=== PATIENT | female | born 1985 | race Caucasian/White ===

== ENCOUNTER 2017-12-05 18:37 | Emergency (ER) | payer MEDICAID ==
[~2017-12-05] VITALS: Ht 167.6 cm; Wt 60.0 kg
[2017-12-05] MEDS ORDERED: HYDROcodone/acetaminophen 10/325mg tab PO ONE (20:10)
[2017-12-05] MEDS ORDERED: ACET1TAB12 PO (20:14)
[2017-12-05 20:44] VITALS: BP 113/77
== END 2017-12-05 20:48 | disposition home or self-care (01) ==
LOC: ER 18:38
DX: M79.671 Pain in right foot (principal); F17.200 Nicotine dependence, unspecified, uncomplicated; Z79.899 Other long term (current) drug therapy
CPT/HCPCS: 73630; 99284; A6449; L3260

== ENCOUNTER 2025-04-22 22:10 | Inpatient (IN) | payer MEDICAID ==
[~2025-04-22] VITALS: Ht 165.1 cm; Wt 61.0 kg
[~2025-04-22 22:10] MED LIST: ACET1TAB12 PO
[2025-04-22 23:02] LABS: MEAN PLATELET VOLUME 7.6 FL (7.4-10.4); RED CELL DISTRIBUTION WIDTH 14.1 % (11.5-14.5)
[2025-04-22 23:08] LABS: CREATININE 0.66 MG/DL (0.40-0.90); TOTAL CARBON DIOXIDE 26.0 MMOL/L (24-32); eCRCL 108 ML/MIN; eGFR > 90 ML/MIN
[2025-04-23] VITALS (22 sets, daily range): BP systolic 101–130; BP diastolic 55–86; PULSE 75–102; RESP 15–22; TEMP 98.1–99.3; O2SAT 98–100
[2025-04-23 00:57] LABS: URINE HCG NEGATIVE (NEG)
[2025-04-23 01:06] LABS: LEUKOCYTE ESTERASE ,URINE MODERATE (Neg); NITRITES, URINE POSITIVE (Neg); OCCULT BLOOD,URINE LARGE (Neg)
[2025-04-23 01:08] LABS: UA COLLECTION TYPE CLN CATCH MIDSTREAM
[2025-04-23 01:10] LABS: MUCUS STRANDS FEW /LPF (Neg); SQUAMOUS EPITHELIAL CELL,UR FEW /LPF (FEW)
--- NOTE | 2025-04-23 01:30 | Physician Documentation ---
History of Present Illness ~ Chief Complaint: Flank Pain Stated Complaint: FLANK PAIN Time Seen by MD: 01:29 Primary Medical Doctor: NONE Mode of Arrival: POV, Ambulatory HPI Patient presents to the emergency room for evaluation of right flank pain. She states it has been hurting a bit the last few days however suddenly got worse today. No history of kidney stones. Positive history of pyelonephritis. No fevers. She is declining pain medicine at this time Medication Reconciliation Allergies: Coded Allergies: No Known Allergies (Unverified , 04/22/25) Miscellaneous Medications Methadone Hcl (Methadone Liquid), 80 MG PO, (Reported) Discontinued Medications Acetaminophen with Codeine (Tylenol with Codeine #3 Tablet), 1 TAB PO Q6H PRN Discontinued Reason: patient no longer taking Glucagon (Gvoke Hypopen), 1 APPLIC IM ONCE Discontinued Reason: patient no longer taking Past Medical History Past Medical History: No Pertinent History Past Surgical History: noncontributory Lives In: Home Review of Systems ROS All review of systems negative except as per HPI Physical Exam Vital Signs: Temperature: 96.6, Source: Temporal, Heart Rate: 93, Respiratory Rate: 16, BP: 126/72, Pulse Oximetry: 98, Weight: 61.000 Oxygen Flow Rate: 0 General Appearance General: Patient is awake, alert, oriented x4 in no acute distress and well appearing.~ Head: Normocephalic and atraumatic. Eyes: Conjunctival normal. EOMI. PERRL. ENT: Mucous membranes moist. Neck: Supple, trachea is midline. Chest: Clear to auscultation bilaterally without rales, rhonchi, or wheezes. There is no accessory muscle use or retractions. Cardiac: RRR without murmurs, gallops, or rubs. Abd: Soft, nondistended, nontender, with normoactive bowel sounds. No guarding, rebound, or rigidity. Back: Mild right-sided CVA tenderness Progress Results/Orders Results/Orders Orders - QUOC REED MD Cult Urine + [place] [facility] (04/23/25 01:11) Ct Abdomen Pelvis (04/23/25 01:46) Page Hospitalist (04/23/25 03:21) Fill Out Med Reconciliation (04/23/25 03:21) Completed Orders - QUOC REED MD Hcg, Ur Ql (04/22/25 22:30) Cbc/Diff (04/22/25 22:30) BMP (04/22/25 22:30) Lipase (04/22/25 22:30) CMP (04/22/25 22:30) Ua W/Microscopic, Cult If Ind (04/23/25 00:25) Ct Abdomen Pelvis (04/23/25 01:46) Normal Saline 1000ml (0.9% Sodium Chlori (04/23/25 01:50) Ceftriaxone Im Kit W/Lidocaine (Rocephin (04/23/25 02:55) Ceftriaxone/X4v-Dbmdqdya 1gm (Rocephin 1 (04/23/25 03:05) Normal Saline 1000ml (0.9% Sodium Chlori (04/23/25 03:45) Vital Signs 04/22/25 04/23/25 04/23/25:25 00:19 00:42 Temp 96.6 Pulse 93 93 Resp 15 16 16 B/P (MAP) 142/79 126/72 (90) Pulse Ox 97 98 O2 Flow Rate 0 Laboratory Tests Test 04/22/25 22:44 04/23/25 00:25 White Blood Count 9.1 Red Blood Count 4.12 L Hemoglobin 11.9 L Hematocrit 35.4 Mean Corpuscular Volume 86.0 Mean Corpuscular Hemoglobin 28.8 Mean Corpuscular Hemoglobin Concent 33.5 Red Cell Distribution Width 14.1 Platelet Count 246 Mean Platelet Volume 7.6 Neutrophils (%) (Auto) 79.5 H Lymphocytes (%) (Auto) 14.8 L Monocytes (%) (Auto) 4.7 Eosinophils (%) (Auto) 0.6 Basophils (%) (Auto) 0.4 Neutrophils # (Auto) 7.2 Lymphocytes # (Auto) 1.3 Monocytes # (Auto) 0.4 Eosinophils # (Auto) 0.1 Basophils # (Auto) 0.0 CBC Comment Sodium Level 142 Potassium Level 4.1 Chloride Level 107 Carbon Dioxide Level 26.0 Anion Gap 9 Blood Urea Nitrogen 23 H Creatinine 0.66 Estimated GFR/1.73 m2 > 90 BUN/Creatinine Ratio 34.8 H Glucose Level 95 Calcium Level 8.4 L Total Bilirubin 0.3 Aspartate Amino Transf (AST/SGOT) 20 Alanine Aminotransferase (ALT/SGPT) 25 Alkaline Phosphatase 72 Total Protein 6.9 Albumin 3.8 Globulin 3.1 Albumin/Globulin Ratio 1.2 Lipase 11 L Procalcitonin < 0.05 Chemistry Comments Urine Specimen Description Cln catch midstream Urine Color Yellow Urine Clarity Cloudy Urine pH 6.0 Urine Specific [place] 1.025 Urine Protein 100 H Urine Glucose (UA) Negative Urine Ketones Negative Urine Occult Blood Large H Urine Nitrite Positive H Urine Bilirubin Negative Urine Urobilinogen 0.2 Urine Leukocyte Esterase Moderate H Urine RBC 50-100 Urine WBC 50-100 H Urine Squamous Epithelial Cells Few Urine Bacteria 4+ Urine Mucus Few Urine Culture Indicated Indicated Volume Urine Centrifuged 10 ml Urine HCG, Qualitative Negative Urine Comment Microbiology Date/Time Source Procedure Growth Status 04/23/25 01:11 Urine Clean Catch Midstream Urine Culture - Preliminary Culture received. Resulted Medical Decision Making Additional information obtaine: N/A Findings Patient presented to the emergency room for evaluation of right-sided flank pain. Differentials include but are not limited to musculoskeletal pain, pyelonephritis, kidney stone, aortic pathology therefore emergent labs ordered. Urinalysis was positive for both red blood cells that has well as white blood cells and therefore we are concerned with infected kidney stone therefore after discussing the risks and benefits CT scan was performed which showed large kidney stone. In the light that patient has a large kidney stone with a urinary tract infection IV antibiotics initiated and we will be consulting with Urology. Vital signs are stable and she is not septic at this time. Diff Dx GI Bleed:Consideration: Include: AE fistula, Angiodysplasia, Bleeding diathesis, Blood loss anemia, Carcinoma, Diverticulosis, Diverticulitis, Esophageal varicies, Esophagitis, Gastritis, Gastroenteritis, Inflammatory BD, Yareli-Nelson syndrome, Meckel's diverticulum, PUD, Other Diff Dx Pain:Considerations: Include: AAA, -Complete, - Incomplete, -Inevitable, -Missed, -Threatened, Abruptio placentae, Angina/MT, Aortic dissection, Appendicitis, Bowel obstruction, Cholangitis, Cholecystitis, Cholelithasis, Constipation, Diverticular disease, Dysmenorrhea, Ectopic , Esophageal rupture, Esophagitis, Gastritis/PUD, Gastroenteritis, GI hemorrhage, Hernia, Hepatitis, Inflammatory BD, Ischemic bowel, Mass, Ovarian cyst/torsion, Pancreatitis, PID, Porphyria, Trauma, int raabdominal, Urinary obstruction, Urinary tract infection, Urolithiasis, Other Diff Dx N/V/D:Considerations: Include: Appendicitis, Bowel obstruction, Dehydration, DKA, Diarrhea - bacterial, Diarrhea - parasitic, Diarrhea - viral, Diverticulitis, Diverticulosis, Drug toxicity, Electrolyte imbalance, Food poisoning, Gastroenteritis, GE reflux, GI bleed, Hepatitis, Hernia, Hypovolemia, Hypotension, Inflammatory BD, Impaction, Malnutrition, Pancreatitis, , PUD, Renal failure, Urolithiasis, Urinary obstruction, UTI, Other Diff Dx Rectal:Considerations: Include: Fissure, Fistula, Foreign body, Impaction, Perirectal abscess, Rectal prolapse, Subcutaneous abscess, Thrombosed hemorrhoid, Ulcer, UTI, Other Departure Admitted to Inpatient Unit: yes, to hospitalist Impression: Primary Impression: Acute urinary tract infection Additional Impression: Kidney stone Condition: Guarded Referrals: NO PRIMARY CARE PROVIDER (PCP) Signature Scribe Signature: No scribe Attestation: The note accurately reflects work and decisions made by me.Quoc Reed MD 04/23/25 03:24 QUOC REED MD Apr 23, 2025 01:30
[2025-04-23] MEDS ORDERED: CefTRIAXone/D5W-Rocephin 1gm 50 ML IV ONE (01:50)
[2025-04-23] MEDS ORDERED: normal saline 1000ml 1,000 ML IV ONE (01:50)
[2025-04-23] MEDS ORDERED: GLUC0.5A IM (01:53)
[2025-04-23] MEDS ORDERED: CefTRIAXone 1000mg IM Kit (w/lidocaine diluent) IM ONE (02:55)
--- NOTE | 2025-04-23 03:00 | RADIOLOGY REPORT ---
Exam: CT CT ABDOMEN PELVIS History: flank pain Comparison Study: None TECHNIQUE: Multidetector CT of the abdomen and pelvis was performed from lung bases to pubic symphysis. Imaging was performed without IV contrast. Axial, coronal and sagittal multiplanar reformats were obtained from the axial data set by the technologist. Radiation optimization: All CT scans at this facility use at least one of these dose optimization techniques: automated exposure control mA and/or kV adjustment per patient size (includes targeted exams where dose is matched to clinical indication) or iterative reconstruction. Radiation Dose Information: CT Dose: CTDI volume is 14.4 mGy. Dose-length product is 765 mGy*cm FINDINGS: Evaluation of solid organs is limited due to lack of intravenous contrast use. Imaged portions of the lung bases demonstrate 0.5 cm nodule in the left lower lobe. Liver, gallbladder, spleen, and pancreas appear unremarkable. There is right hydronephrosis and proximal hydroureter secondary to obstructing 0.9 cm calculus in the proximal to mid right ureter. The left kidney appears unremarkable. No additional nephrolithiasis identified. No evidence of bowel obstruction. Large amount of intracolonic stool. Appendix appears normal. There is an intrauterine contraceptive device within the uterus which is anteverted. No suspicious osseous lesion. IMPRESSION: 1. Obstructing 0.9 cm calculus in the proximal to mid right ureter resulting in moderate right hydronephrosis and hydroureter. 2. Large amount of stool throughout the colon. 3. Left lower lobe pulmonary nodule measuring 0.5 cm. Follow-up recommendations are based upon the 2017 Fleischner Chest Society which are based upon the nodule size and patient risk factor for cancer. For a nodule < 6 mm in size, follow-up is based upon the patient risk factor:. A) Low-Risk Patient: No routine follow up. B) High-Risk Patient: Optional CT at 12 months.
[2025-04-23] MEDS: CefTRIAXone/D5W-Rocephin 1gm 50 ML IV ONE (03:41)
[2025-04-23] MEDS ORDERED: METH10SO PO (03:44)
[2025-04-23] MEDS: normal saline 1000ml 1,000 ML IV ONE (03:45)
[2025-04-23] MEDS ORDERED: magnesium sulf-water 4G/100mL 100 ML IV PRN (03:50)
[2025-04-23] MEDS ORDERED: ondansetron/PF 4mg/2ml inj IV PRN ×2 (03:50→14:55)
[2025-04-23] MEDS ORDERED: magnesium sulf-water 2g/50mL 50 ML IV PRN (03:50)
[2025-04-23] MEDS ORDERED: ondansetron 4mg rapidly disintigrating tab PO PRN (03:50)
[2025-04-23] MEDS ORDERED: mag hydrox/Alum hydrox/simeth 30ml oral suspension PO PRN (03:50)
[2025-04-23] MEDS ORDERED: magnesium hydroxide 30ml (MOM) UD suspension PO PRN (03:50)
[2025-04-23] MEDS ORDERED: potassium Cl 20 mEq SR tablet PO PRN ×2 (03:50)
[2025-04-23] MEDS ORDERED: magnesium Cl slow-release 64mg tablet PO PRN (03:50)
[2025-04-23] MEDS ORDERED: potassium Cl 40MEQ/1/2NS 520ml 520 ML IV PRN (03:50)
--- NOTE | 2025-04-23 04:32 | ELECTROCARDIOGRAPH REPORT ---
[facility] Test Date: 2025-04-23 Test Time: 04:30:13 Pat Name: CRIS KEARNEY Department: EMERGENCY ROOM Room: [place] [address] Gender: F Back Line Cook: RHINA : 1985 Requested By: POLLY JERRY Order Number: [id number] Reading MD: Dr. ROSALINO Titus Measurements Intervals [place] Rate: 89 P: 56 SC: 149 QRS: 79 QRSD: 93 T: 66 QT: 396 QTc: 482 Interpretive Statements Sinus rhythm Nonspecific T abnormalities, lateral leads Electronically Signed On 04-24-2025 18:03:[address] ROSALINO Titus Please click the below link to view image of tracing.
[2025-04-23] MEDS: normal saline 1000ml 1,000 ML IV SCH (04:34)
--- NOTE | 2025-04-23 04:50 | RADIOLOGY REPORT ---
CHEST RADIOGRAPH Indication: suspected Pneumonia, cough and fever. Technique: Single frontal view of the chest was obtained COMPARISON: None FINDINGS: Lungs and pleural spaces are clear. Cardiac silhouette and jhon are within normal limits. Bones and soft tissues demonstrate no significant abnormality. IMPRESSION: No acute disease.
--- NOTE | 2025-04-23 05:18 | HISTORY AND PHYSICAL-Residence ---
History & Physical Providers to CC Resident Creating Document: NAGA JERRY, RES ~ History of Present Illness Primary Medical Doctor: NONE Reason for Admit\Complaint: Acute pyelonephritis History of Present Illness This is a 39 year-old female who presented to the Emergency Department with severe right-sided flank pain that began yesterday. She rates the pain as 10/10, describing it as excruciating and radiating to the groin. The pain has not been relieved by drpe-uus-styumpy medications and is associated with nausea, foul- smelling cloudy urine, and diaphoresis. The patient was recently admitted during the month of January for similar symptoms, for which she was evaluated in the Emergency Department and discharged shortly after receiving antibiotics. She denies hematuria, dysuria, fever, chills, vomiting, constipation, diarrhea, chest pain, shortness of breath, headache, dizziness, or recent trauma. 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 Denies any recent travel She smokes vape every day, denies alcohol use, denies any drug or methamphetamine use Lives In: Home ROS Constitutional: Reports: no symptoms reported Eyes: Reports: no symptoms reported ENT: Reports: no symptoms reported Respiratory: Reports: no symptoms reported Cardiovascular: Reports: diaphoresis Gastrointestinal: Reports: nausea Genitourinary: Reports: flank pain, other (Patient reports foul-smelling cloudy urine which is dark yellow in color) Integumentary: Reports: no symptoms reported Allergic/Immunologic: Reports: no symptoms reported Hematologic/Lymphatic: Reports: no symptoms reported Endocrine: Reports: no symptoms reported Psychiatric: Reports: no symptoms reported Exam Vitals: Vital Signs Date Time Temp Pulse Resp B/P (MAP) Pulse Ox O2 Delivery O2 Flow Rate FiO2 04/23/25 04:34 94 16 114/63 (80) 100 04/23/25 00:42 0 04/22/25 22:25 96.6 General: Awake , alert, and oriented x4 HEENT: Atraumatic, normocephalic, EOMI, anicteric sclera ; pink conjunctiva Neck: Trachea midline. Supple, full range of motion, no JVD Cardiac: Regular rhythm, regular rate with no murmurs all over the precordium. Respiratory: Equal breath sounds bilaterally, no tachypnea, no wheezing ,rub or rales, Chest wall is symmetric and without deformity. Gastrointestinal: Abdomen symmetric, non-distended, soft, non-tender, normal bowel sounds x4 quadrant, normoactive, no hepatosplenomegaly Genitourinary: Right flank pain radiating to the groin is tender on palpation Neurological: Mental status exam: alert and consciousness, orientation, memory, speech - Cranial nerve test: Cranial nerves 2-12 intact - Motor system: Normal Nutrition, normal tone, Power 5/5, no involuntary movements - Sensory system: Intact - Reflex testing: Biceps, triceps and knee reflexes 2+ - Cerebellar: Normal Skin: Warm and dry Extremities : No Edema, peripheral pulses felt, No deformities Psychiatric:Appropriate mood and affect,No hallucinations or suicidal ideation Diagnostic Data Last Recorded Lab Results: 04/22/25224304/22/252243 Advance Care Planning Advanced Care plannin - 30 Minutes Additional Plan 39 years old female who presented to ED with right flank pain he is currently evaluated for acute pyelonephritis Right-sided acute pyelonephritis secondary to obstructing ureteral calculi Right hydronephrosis and hydroureter 2/2 obstructing renal calculi Complicated UTI Vitals are stable BUN elevated, creatinine normal, BUN/creatinine is 34.8 Urinalysis: +4 bacteria, +nitrite, + WBC Procalcitonin normal In ED-given 1 dose of ceftriaxone and IV normal saline 1000 mL bolus Chest d-ton-wychrx CT abdomen and pelvis shows-Obstructing 0.9 cm calculus in the proximal to mid right ureter resulting in moderate right hydronephrosis and hydroureter. Large amount of stool throughout the colon. Started IV ceftriaxone 1 g daily, IV normal saline 100 cc/hour Follow up with urine culture, ESR, CRP, lactic acid Follow up with daily labs, urology consult in a.m. Chronic opioid use Patient takes methadone at home, continue home med after med rec Advance care: I spent a total of 16 minutes reviewing various resuscitative measures/ACP with patient. The patient decided to be full code Code Status: Full DVT prophylaxis: Heparin subQ Analgesia/Sedation: Morphine Line/tube: Peripheral Nutrition: NPO PT: Ordered Prognosis: Guarded Disposition: Patient will be monitored in surgical floor, currently on maintenance fluids and antibiotic, nephrology consult in a.m. Naga Jerry PGY1-Internal Medicine Resident Addendum I personally reviewed the chart, labs and imaging and reviewed the patient with the team. I agree with the assessment and plan as documented by the resident. Patient was seen through remote audio-visual assessment through HIPAA compliance setup. Date of Service: Apr 23, 2025 Billing Provider: YENY THOMAS MD, SATISH, RES Apr 23, 2025 05:18 YENY THOMAS MD Apr 23, 2025 06:19
[2025-04-23] MEDS ORDERED: morphine 4 MG/ML inj SYRINge IV PRN ×2 (07:13→14:55)
[2025-04-23] MEDS: K and/or MAG REPLACEMENT MC SCH (08:00)
[2025-04-23] MEDS ORDERED: docusate sod 100mg capsule PO SCH (08:00)
[2025-04-23] MEDS: heparin, porcine 5000 units/ml vial SQ SCH (08:00)
[2025-04-23] MEDS: docusate sodium 100mg/10ml UD cup PO SCH (08:00)
[2025-04-23] MEDS: normal saline 500ml IV soln 500 ML IV ONE (08:24)
[2025-04-23 10:44] LABS: PRE OP HEMATOCRIT 33.8 % (35.0-45.0); PRE OP HEMOGLOBIN 11.4 g/dL (12.0-16.0)
[2025-04-23 10:45] LABS: MEAN PLATELET VOLUME 7.4 FL (7.4-10.4); PRE OP PLATELET COUNT 177 X10'3 (140-440); PRE OP WHITE BLOOD COUNT 11.6 10'3 (4.8-10.8); RED CELL DISTRIBUTION WIDTH 14.0 % (11.5-14.5)
[2025-04-23 10:45] LABS: URINE AMPHETAMINE SCREEN POSITIVE (Neg); URINE BARBITUATE SCREEN NEGATIVE (Neg); URINE BENZODIAZEPINES SCREEN NEGATIVE (Neg); URINE CANNABINOID SCREEN NEGATIVE (Neg); URINE COCAINE SCREEN NEGATIVE (Neg); URINE METHADONE SCREEN POSITIVE (Neg); URINE OPIATE SCREEN NEGATIVE (Neg); URINE PHENCYCLIDINE SCREEN NEGATIVE (Neg)
[2025-04-23 10:57] LABS: CREATININE 0.49 MG/DL (0.40-0.90); PRE OP ANION GAP 7 (8-16); PRE OP GLUCOSE 89 MG/DL (70-104); PRE OP POTASSIUM 3.8 MMOL/L (3.4-5.1); PRE OP SODIUM 139 MMOL/L (135-145); TOTAL CARBON DIOXIDE 23.1 MMOL/L (24-32); eCRCL 146 ML/MIN; eGFR > 90 ML/MIN
[2025-04-23] MEDS ORDERED: iohexol 300 MG/1 ML 50ml polymer ONE (13:16)
[2025-04-23] MEDS: morphine 4 MG/ML inj SYRINge IV PRN (13:39)
[2025-04-23] MEDS ORDERED: labetalol 20mg/4ml (5mg/ml) syringe IV PRN (14:55)
[2025-04-23] MEDS ORDERED: hydrALAZINE 20mg/ml inj. IV PRN (14:55)
[2025-04-23] MEDS ORDERED: acetaminophen 1,000mg/100ml IV 100 ML IV PRN (14:55)
[2025-04-23] MEDS ORDERED: HYDROmorphone/PF 0.2 MG/ML SYRINGE IV PRN ×2 (14:55)
[2025-04-23] MEDS: ringers solution, lacted 1,000 ML IV SCH (14:55)
[2025-04-23] MEDS ORDERED: midazolam 1 mg/ML 2ml injection ONE (15:11)
[2025-04-23] MEDS ORDERED: fentaNYL/PF 50MCG/1 ML 2ML syringe ONE (15:11)
--- NOTE | 2025-04-23 15:12 | CONSULTATION REPORT ---
Consult Providers to CC ~ History of Present Illness Reason for Admit\Complaint: Right ureteral stone History of Present Illness Patient presented to the emergency department with right sided flank pain. She had a CT scan performed which showed a right proximal ureteral stone. 9 mm in size. No previous history of kidney stones. She also has a UA concernign for an infection. Allergies: Coded Allergies: No Known Allergies (Unverified , 04/22/25) Home Medications Home Medications Active Reported Methadone Liquid (Methadone HCl) 10 Mg/5 Ml Solution 80 Mg PO ROS ROS A pertinent 10 point review of systems was performed and was normal except as otherwise noted. Please also see HPI for added review of systems. Exam Vitals: Vital Signs Date Time Temp Pulse Resp B/P (MAP) Pulse Ox O2 Delivery O2 Flow Rate FiO2 04/23/25 14:30 101 16 99 04/23/25 10:00 98.2 111/69 (83) Room Air 04/23/25 09:28 0.0 General: General: Awake and Alert, no acute distress. HEENT: HEENT: Conjunctiva pink, Sclera clear, Mucus Membranes moist. Neck: Neck: Supple without masses and tenderness. Chest: Resp: Unlabored. Cardiovascular: Heart: Regular Rate and rhythm Abdomen: Abdomen: Soft and non tender no organomegaly Extremities: Extremities: No cyanosis,clubbing or edema. Skin: Skin: Warm and Dry. Diagnostic Data Last Recorded Lab Results: 04/23/25 1030 04/23/25 1030 Diagnostic Data: 04/23/25 CT Abdomen Pelvis (my read): Right sided proximal ureteral stone, 9 mm in greatest dimension. Hydronephrosis proximal to this. Problems: (1) Kidney stone Status: Acute Assessment & Plan: Right ureteral stone. I would recommend stent placement. I discussed risks of surgery including infection, bleeding, damage to surrounding tissues, need for subsequent interventions. We discussed benefits including allowing for the infection to clear, pain improvement, and allowing for dilation of the ureter. We discussed alternatives including medical therapy. After discussion patient consented for surgery. She is aware the stone will still be present and need to be treated in several weeks. My office will arrange this as an outpatient as it will be done on an outpatient basis. - OR today for cystoscopy, right retrograde pyelogram and right ureteral stent placement - Will arrange for outpatient follow-up MILTON HOOD MD Apr 23, 2025 15:12
[2025-04-23] MEDS ORDERED: propofol inj 20 ML IV ONE (15:41)
--- NOTE | 2025-04-23 15:55 | OPERATIVE REPORT ---
Operative Report Providers to ~ Date of Procedure: Apr 23, 2025 Pre-Operative Diagnosis: Right ureteral stone Post-Operative Diagnosis SAME as PRE-Op Procedure Performed Cystoscopy, right retrograde pyelogram, right ureteral stent placement. Surgeon: MD Farzana Overhauler Helper None Anesthesiologist: Osiel Chen Type of Anesthesia: General Findings: Right hydronephrosis secondary to obstruction Complications None Prosthetics\Implants used: Right 6 x 24 double J ureteral stent Estimated Blood Loss: Minimal Specimen Removed: None Description of Procedure: Patient was brought to the operating room, given a general anesthetic and placed in the dorsal lithotomy position. The patient was prepped and draped in the normal sterile fashion. A timeout was performed. A 22 [place] cystoscope was inserted via urethra. The right ureteral orifice was identified and intubated with a 5 [place] open-ended catheter. A retrograde pyelogram was performed which showed an obstructing stone in the proximal ureter and significant hydronpehrosis proximal to it. A wire was then passed into the kidney, and a 6 x 24 double J ureteral stent was passed over the wire into the right kidney, and the wire was removed. There was good coil on the proximal portion of the stent and good coil on the distal portion of the stent on direct visualization. The bladder was drained of urine and the cystoscope was removed via urethra. The patient was awaken of general anesthetic and transferred to the post- operative care unit in good condition. Patient will need stone treatment in several weeks. MILTON HOOD MD Apr 23, 2025 15:55
[2025-04-23] MEDS: polyethylene glycol 3350 17gm powd pack PO SCH (20:52)
[2025-04-23] MEDS: HYDROcodone/acetaminophen 5mg/325mg tablet PO PRN (22:10)
[2025-04-24 02:00] VITALS: BP 110/67; PULSE 94; RESP 14; TEMP 98.1; O2SAT 99
[2025-04-24] MEDS: CefTRIAXone/D5W-Rocephin 1gm 50 ML IV SCH (03:49)
[2025-04-24 06:00] VITALS: BP 114/69; PULSE 91; RESP 16; TEMP 98.3; O2SAT 98
[2025-04-24 06:19] LABS: CREATININE 0.42 MG/DL (0.40-0.90); TOTAL CARBON DIOXIDE 24.5 MMOL/L (24-32); eCRCL 163 ML/MIN; eGFR > 90 ML/MIN
[2025-04-24 07:21] LABS: MEAN PLATELET VOLUME 7.6 FL (7.4-10.4); RED CELL DISTRIBUTION WIDTH 14.1 % (11.5-14.5)
[2025-04-24 08:00] VITALS: RESP 16; O2SAT 98
[2025-04-24 10:00] VITALS: BP 125/80; PULSE 88; RESP 16; TEMP 96.7; O2SAT 100
[2025-04-24] MEDS ORDERED: METH10SO PO (10:58)
[2025-04-24] MEDS: methadone 10mg tablet PO ONE (11:07)
[2025-04-24] MEDS: methadone 10mg tablet PO SCH (11:37)
[2025-04-24] MEDS ORDERED: CIPR-458 PO (16:08)
[2025-04-24] MEDS ORDERED: HYDR-3965 PO (16:08)
--- NOTE | 2025-04-24 18:38 | DISCHARGE SUMMARY ---
Discharge Summary Providers to Feels fine today pain well controlled, cleared for discharge by urologist ~ Discharge Summary Assessment Right-sided pyelonephritis A right-sided hydronephrosis, and hydroureter Right side ureter calculi obstructing Status post right ureter stent placement today Complicated UTI Chronic methadone use History of opioid abuse, clean now Admission Diagnosis: Right ureteral stone Admission Diagnosis Comment: Right-sided pyelonephritis A right-sided hydronephrosis, and hydroureter Right side ureter calculi obstructing Status post right ureter stent placement today Complicated UTI Chronic methadone use History of opioid abuse, clean now Hospital Course DATE OF ADMISSION: April 23, 2025 DATE OF DISCHARGE: April 24, 2025 Discharge Diagnosis\Comment: Right-sided pyelonephritis A right-sided hydronephrosis, and hydroureter Right side ureter calculi obstructing Status post right ureter stent placement today Complicated UTI Chronic methadone use History of opioid abuse, clean now Operations\Procedures: A right ureter stent placement Consultants: Urology Complications: Non Condition on DC: Stable Discharge Summary: This is a 39 year-old female who presented to the Emergency Department with severe right-sided flank pain that began yesterday. She rates the pain as 10/10, describing it as excruciating and radiating to the groin. The pain has not been relieved by [id number] medications and is associated with nausea, foul- smelling cloudy urine, and diaphoresis.The patient was recently admitted during the month of January for similar symptoms, for which she was evaluated in the Emergency Department and discharged shortly after receiving antibiotics.She denies hematuria, dysuria, fever, chills, vomiting, constipation, diarrhea, chest pain, shortness of breath, headache, dizziness, or recent trauma. After admission patient was extensively evaluated treated including stent placement right ureter by urology , today she is feeling fine cleared by urologist for discharge, medication reconciled, follow-up PCP Urology in three days, today on physical exam Vital signs, stable ,afebrile. Pulse Oximetry reflects adequate oxygenation. General: well developed, well nourished. Awake , alert, and oriented x4, resting comfortably in the bed, in no acute distress . Skin: Warm, dry, no pallor, no rash or petechiae. HEENT: Atraumatic, normocephalic, EOMI, anicteric sclera B; pink conjunctiva; PERRLA, normal oropharynx, moist oral and nasal mucosa. Tympanic membrane , nose , throat clear. Neck: Trachea midline. Supple, full range of motion, no JVD, bruit , hepatojugular reflex , lymphadenopathy or masses, or other lesions Cardiac: Regular rhythm, regular rate no murmurs, rubs, or gallops. Normal S1 and S2, no S3 noticed. PMI is normal. Respiratory: Equal breath sounds bilaterally, no tachypnea; lungs clear to auscultation bilaterally, no wheezing ,rub or rales, or crackles. Chest wall is symmetric and without deformity. No signs of trauma. Chest wall is nontender. No signs of respiratory distress. Resonance is normal upon percussion bilaterally. Gastrointestinal: Abdomen symmetric, non-distended, soft, non-tender, normal bowel sounds x4 quadrant, normoactive, no hepatosplenomegaly , no masses , no bruit, no flank pain bilaterally. No voluntary guarding, rebound, or rigidity. No tenderness to percussion. No pulsatile masses. Equal femoral pulses. No Jones's sign or McBurney point tenderness. Back; no CVA tenderness bilaterally, no deformities. Neck and back are without deformity as well. No tenderness noted on palpation of the spinous processes. Spinous processes are midline. Cervical, thoracic, and lumbar paraspinal muscles are not tender and are without spasm. Musculoskeletal: Extremities, normal range of motion, non-tender, muscle strength 5/5 x 4. Negative Homans signs bilaterally on lower extremity. Distal pulses full symmetrical, no clubbing, cyanosis , edema. Neurological: Speech is clear, alert, and oriented x 4. No motor or sensory deficit, deep tendon reflexes normal, cerebellar intact. Cranial nerves II-XII intact. Psych: Alert and or appropriate, normal affect. Vascular: Good distal pulses, which are equal x4; capillary refill less than 2 seconds. Lymphatic, no lymphadenopathy. *Problems/Diagnosis: (1) Kidney stone Status: Acute Total Time Spent on D/C: > 30 Minutes Date of Service: Apr 24, 2025 Billing Provider: WEI FLEMING MD Common Visit Codes: 38746-POB/OBS DISCH DAY >30min WEI FLEMING MD Apr 24, 2025 18:38
== END 2025-04-24 17:34 | disposition home or self-care (01) | DRG 463 ==
LOC: ER 22:11 → ED HOLD 04-23 03:55 → EDBEDREQ 04-23 05:13 → SUR 3N 04-23 06:50
PROVIDERS: ADMIT Internal Medicine Sleep Medicine; ATTEND Family Medicine
PROC: BT1D1ZZ Fluoroscopy of Right Kidney, Ureter and Bladder using Low Osmolar Contrast (ICD-10-PCS; 2025-04-23)
PROC: 0T768DZ Dilation of Right Ureter with Intraluminal Device, Via Natural or Artificial Opening Endoscopic (ICD-10-PCS; principal; 2025-04-23 15:06)
DX: N13.6 Pyonephrosis (principal); F11.10 Opioid abuse, uncomplicated; Z79.899 Other long term (current) drug therapy
CPT/HCPCS: 36415; 71045; 74176; 74420; 76000; 80048; 80053; 80305; 81001; 81025; 82948; 83605; 83690; 84145; 85025; 85651; 87077; 87081; 87088; 87186; 93005; 99285; A4618; C2617; G0378; J0696; J1644; J2250; J2270; J2704; J3010; J7030; J7040; J7120; Q9967